=== PATIENT | female | born 1965 | race Caucasian/White ===

== ENCOUNTER 2024-06-25 22:06 | Emergency (ER) | payer MEDICAID ==
[~2024-06-25] VITALS: Ht 154.9 cm; Wt 87.0 kg
[2024-06-25 22:30] VITALS: O2SAT 100
[2024-06-25] MEDS ORDERED: CLONIDINE 0.2MG TABLET PO ONE (23:00)
[2024-06-25] MEDS: IBUPROFEN 800MG TABLET PO ONE (23:16)
[2024-06-25] MEDS: TRAMADOL 50MG TABLET PO ONE (23:16)
[2024-06-25] MEDS: CLONIDINE 0.1MG TABLET PO NR (23:17)
[2024-06-26] MEDS ORDERED: CYCL25PO15 MT (01:57)
[2024-06-26] MEDS ORDERED: IBUP-2030 MT (01:57)
[2024-06-26 02:05] VITALS: BP 175/93; PULSE 68; RESP 12; TEMP 98.3
== END 2024-06-26 02:20 | disposition home or self-care (01) ==
LOC: ER 22:06
DX: M54.50 Low back pain, unspecified (principal); I10 Essential (primary) hypertension; E11.9 Type 2 diabetes mellitus without complications; E78.00 Pure hypercholesterolemia, unspecified
CPT/HCPCS: 72100; 99285

== ENCOUNTER 2025-05-18 15:28 | Emergency (ER) | payer MEDICAID ==
[~2025-05-18] VITALS: Ht 167.6 cm; Wt 101.0 kg
[~2025-05-18 15:28] MED LIST: CYCL25PO15 MT; IBUP-2030 MT
[2025-05-18 15:36] VITALS: O2SAT 98
[2025-05-18] MEDS ORDERED: TOPUD PO (18:11)
[2025-05-18] MEDS ORDERED: IBUP-2028 MT (18:11)
[2025-05-18] MEDS: KETOROLAC 30MG/ML VIAL IV ONE (18:16)
[2025-05-18 19:18] VITALS: BP 162/91; PULSE 84; RESP 16; TEMP 36.9; O2SAT 97
== END 2025-05-18 19:30 | disposition home or self-care (01) ==
LOC: ER 15:28
DX: M25.552 Pain in left hip (principal); S80.01XA Contusion of right knee, initial encounter; E11.9 Type 2 diabetes mellitus without complications; E78.00 Pure hypercholesterolemia, unspecified; I10 Essential (primary) hypertension; W01.0XXA Fall on same level from slipping, tripping and stumbling without subsequent striking against object, initial encounter; Y93.01 Activity, walking, marching and hiking; Y92.89 Other specified places as the place of occurrence of the external cause; Y99.8 Other external cause status
CPT/HCPCS: 73502; 73110; 73562; 29125; 96374; 99284; J1885; Z7610 ×2